=== PATIENT | male | born 1945 | race Caucasian/White ===

== ENCOUNTER 2021-07-06 20:45 | Emergency (ER) | payer MEDICARE, BC ==
[~2021-07-06] VITALS: Ht 172.7 cm; Wt 66.7 kg
[2021-07-06] MEDS ORDERED: ASA81BEC PO (20:53)
[2021-07-06] MEDS ORDERED: METFORMIN HCL500 M3 PO (20:53)
[2021-07-06 21:43] LABS: URINE BILIRUBIN NEGATIVE (Negative); URINE BLOOD 1+ (Negative); URINE CLARITY CLEAR; URINE COLOR YELLOW; URINE GLUCOSE-RANDOM 1+ (Negative); URINE KETONES NEGATIVE (Negative); URINE LEUKOCYTES-REFLEX NEGATIVE (Negative); URINE NITRITE-REFLEX NEGATIVE (Negative); URINE PROTEIN TRACE (Negative); URINE UROBILINOGEN 0.2 E.U./dl (0.2-1.0)
[2021-07-06 21:44] LABS: ABSOLUTE BASOPHILS 0.1 thou/uL (0.0-0.2); ABSOLUTE LYMPHOCYTES 1.6 thou/uL (0.8-5.3); ABSOLUTE MONOCYTES 0.9 thou/uL (0.0-1.2); ABSOLUTE NEUTROPHILS 8.1 thou/uL (1.6-8.1); BASOPHILS 1.1 %; EOSINOPHILS 0.3 %; HEMATOCRIT 46.9 % (42.0-52.0); LYMPHOCYTES 14.5 %; MCH 32.7 pg (26.0-34.0); MCV 96.1 fL (80.0-100.0); MONOCYTES 8.2 %; MPV 7.4 fl. (7.2-11.1); NUCLEATED RBCS 0 /100WBC; PLATELET COUNT* 246 thou/uL (150-400); POLYS 75.9 %; RBC 4.88 mil/uL (4.50-6.00); RDW-CV 12.4 % (10.5-14.5); WBC 10.7 thou/uL (4.0-11.0)
[2021-07-06 21:49] LABS: BACTERIA-REFLEX None Seen /HPF (None Seen); HYALINE CASTS 4-10 Moderate /LPF (None Seen); MUCUS None Seen strn/LPF (None Seen); SQUAMOUS NONE SEEN /LPF (0-3); URINE RBC 3-10 Few /HPF (0-2); URINE WBC-REFLEX 0-5 Rare /HPF (0-5)
[2021-07-06 21:50] LABS: CRYSTALS None Seen /LPF (None Seen)
[2021-07-06 21:51] LABS: CALCIUM 9.7 mg/dL (8.5-10.1); POTASSIUM 3.6 mmol/L (3.5-5.1)
[2021-07-06 22:05] LABS: ALBUMIN 3.9 g/dL (3.4-5.0); TOTAL BILIRUBIN 0.4 mg/dL (<0.1-1.0); TOTAL PROTEIN 8.3 g/dL (6.4-8.2)
[2021-07-07 00:47] VITALS: BP 110/70
--- NOTE | 2021-07-07 09:32 | EKG ---
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
== END 2021-07-07 00:47 | disposition home or self-care (01) ==
LOC: M.ERS 20:45
PROVIDERS: Personal Emergency Response Attendant
DX: I49.9 Cardiac arrhythmia, unspecified (principal); Z20.822 Contact with and (suspected) exposure to COVID-19; I10 Essential (primary) hypertension; E11.9 Type 2 diabetes mellitus without complications; F17.210 Nicotine dependence, cigarettes, uncomplicated; Z79.82 Long term (current) use of aspirin; Z79.899 Other long term (current) drug therapy

== ENCOUNTER → 2021-08-10 | Outpatient (CLI) | payer MEDICARE, BC ==
[~2021-08-10] MED LIST: ASA81BEC PO; METFORMIN HCL500 M3 PO
--- NOTE | 2021-08-10 12:18 | 2DMMODE ---
[place] [address] 2 D/M-MODE ECHOCARDIOGRAM Name: SANYAVALENTINO Room: [facility]#: [id number] Admission: 08/10/21 Attend Phys: Dharmesh Alvarez, Discharge: Date of : 47 Date of Service: 08/10/21 1218 Report #: [id number] THIS REPORT FOR: cc: Laura Schawb Beth E. DO Holkins,Fredi Quevedo MD [facility] ~ APPROVED REPORT Study performed: 08/10/2021 11:20:25 EXAM: Comprehensive 2D, Doppler, and color-flow Echocardiogram BSA: 1.78 HR: 90 bpm BP: 140/70 mmHg Other Information Study Quality: Good Indications Dizziness and Vertigo Palpitations Syncope 2D Dimensions IVSd: 12.05 (7-11mm) LVOT Diam: 19.83 (18-24mm) LVDd: 36.03 mm PWd: 10.62 (7-11mm) Ascending Ao: 26.34 (22-36mm) LVDs: 26.59 (25-40mm) Aortic Root: 31.06 mm Volumes Left Atrial Volume (Systole) LA ESV Index: 20.70 mL/m2 Aortic Valve AoV Peak Giovanny.: 1.15 m/s AO Peak Gr.: 5.31 mmHg LVOT Max P.60 mmHg AO Mean Gr.: 2.84 mmHg LVOT Mean P.62 mmHg LVOT Max V: 0.81 m/s AO V2 VTI: 20.82 cm LVOT Mean V: 0.61 m/s SHEMAR (VTI): 3.36 cm2 LVOT V1 VTI: 22.65 [place] [address] 2 D/M-MODE ECHOCARDIOGRAM Name: VALENTINO SEGUNDO [id number] Admission: 08/10/21 Attend Phys: Dharmesh Alvarez, Discharge: Date of : 47 Date of Service: 08/10/21 1218 Report #: [id number] E/A Ratio: 0.77 MV Decel. Time: 225.84 ms MV E Max Giovanny.: 0.85 m/s MV PHT: 65.49 ms MVA (PHT): 3.36 cm2 TDI E/Lateral E': 12.14 E/Medial E': 14.17 Medial E' Giovanny.: 0.06 m/s Lateral E' Giovanny.: 0.07 m/s Pulmonary Valve PV Peak Giovanny.: 0.99 m/s PV Peak Gr.: 3.90 mmHg Tricuspid Valve RAP Estimate: 5.00 mmHg TR Peak Gr.: 36.16 mmHg RVSP: 41.16 mmHg PA Pressure: 41.16 mmHg Left Ventricle The left ventricle is normal size. There is normal LV segmental wall motion. There is normal left ventricular wall thickness. Left ventricular systolic function is normal. The left ventricular ejection fraction is within the normal range. LVEF is 60-65%. Grade I - abnormal relaxation pattern. Right Ventricle The right ventricle is normal size. The right ventricular systolic function is normal. Atria The left atrium size is normal. The right atrium size is normal. Aortic Valve Mild aortic valve sclerosis. Mild aortic regurgitation. There is no aortic valvular stenosis. Mitral Valve Mitral valve leaflets are mildly thickened. Mitral regurgitation jet is eccentrically directed. Mild mitral regurgitation. No evidence of mitral valve stenosis. Tricuspid Valve The tricuspid valve is normal in structure. Mild [place] [address] 2 D/M-MODE ECHOCARDIOGRAM Name: VALENTINO SEGUNDO Edyta Room: [facility]#: [id number] Admission: 08/10/21 Attend Phys: Dharmesh Alvarez, Discharge: Date of : 47 Date of Service: 08/10/21 1218 Report #: [id number] Pulmonic Valve The pulmonary valve is normal in structure. Trace pulmonic regurgitation. Great Vessels The aortic root is normal in size. IVC is normal in size and collapses >50% with inspiration. Pericardium There is no pericardial effusion. <Conclusion> The left ventricle is normal size. There is normal left ventricular wall thickness. Left ventricular systolic function is normal. The left ventricular ejection fraction is within the normal range. LVEF is 60-65%. Grade I - abnormal relaxation pattern. The right ventricle is normal size. The left atrium size is normal. Mild aortic valve sclerosis. Mild aortic regurgitation. There is no aortic valvular stenosis. Mitral valve leaflets are mildly thickened. Mitral regurgitation jet is eccentrically directed. Mild mitral regurgitation. The tricuspid valve is normal in structure. Mild tricuspid regurgitation. IVC is normal in size and collapses >50% with inspiration. There is no pericardial effusion. There is normal LV segmental wall motion. <ELECTRONICALLY SIGNED> By: Fredi Disla MD, FACC 08/10/211217 17 17 Fredi Disla MD, FACC /INF
--- NOTE | 2021-08-10 16:51 | CARDNUC ---
[place] [address] CARDIAC NUCLEAR IMAGING REPORT Name: VALENTINO SEGUNDO Room: [facility]#: [id number] Admission: 08/10/21 Attend Phys: Dharmesh Alvarez, Discharge: Date of : 47 Date of Service: 08/10/21 1650 Report #: [id number] THIS REPORT FOR: cc: Laura Schwab Beth E. DO Liston, Michael J. MD [facility] ~ APPROVED REPORT Study performed: 08/10/2021 09:03:55 Exam: Nuclear Stress Test Indication: Chest pain Patient Location: Out-Patient Stress Tech: ERENDIRA NASH Stress Nurse: Michelle Herrera RN NM Tech:TONYA Russ Ht: 5 ft 6 in Wt: 150 lbs BSA: 1.77 m2 BMI: 24.20 Medical History Medical History: Diabetes, HTN, Hyperlipidemia Medications: AMLODIPINE, ASA, PRAVASTATIN Allergies: No known drug allergies Cardiac Risk Factors: Age, DM, HTN, Hyperlipidemia Exercise History: Physically active Stress Test Details Stress Test: Pharmacologic stress testing performed using 0.4 mg of regadenoson per 5 mL given IV over 10 seconds. Reason for pharmacologic stress test: arthritis. HR Resting HR: 82 bpm Max Heart Rate (APMHR): 145 bpm Max HR Achieved: 110 bpm Target HR (85% APMHR): 123 bpm % of APMHR: 75 Recovery HR: 104 bpm BP Resting BP: 147/72 mmHg Max BP: 127/53 mmHg ECG Resting ECG: [place] [address] CARDIAC NUCLEAR IMAGING REPORT Name: SANYAMICAELAVALENTINO Edyta Room: [facility]#: [id number] Admission: 08/10/21 Attend Phys: Dharmesh Alvarez, Discharge: Date of : 47 Date of Service: 08/10/21 1650 Report #: [id number] Stress ECG: Sinus Tachycardia ST Change: None Arrhythmia: None Recovery ECG: Sinus Rhythm Recovery ST Change: None Recovery Arrhythmia: None Clinical Reason for Termination: Completed protocol The patient tolerated Lexiscan infusion without significant cardiac symptoms. Stress ECG Conclusion The baseline twelve-lead EKG shows sinus rhythm without significant ST segment or T wave abnormality. EKGs obtained during and post Lexiscan infusion show sinus rhythm and sinus tachycardia with no significant ST segment changes when compared to baseline. There were no stress-induced arrhythmias. NM EXAM: Myocardial Perfusion REST/STRESS Imaging Protocol: Rest Tc-99m/Stress Tc-99m 1 day Resting Data Rest SPECT myocardial perfusion imaging was performed in supine position 30 minutes following the intravenous injection of 11.5 mCi of Tc-99m Sestamibi. Time of rest injection: 739 Date: 08/10/2021 The images were gated to evaluate regional wall motion and calculate left ventricular ejection fraction. Administration Route: IV Administration Site: Right AC Pharmacologic Stress Pharmacologic stress test was performed by injecting Regadenoson 0.4 mg IV push followed by the intravenous injection of 35.2 mCi of Tc-99m Sestamibi. Time of stress injection: 919 Date: 08/10/2021 Administration Route: IV Administration Site: Right AC Gated Stress SPECT was performed 40 minutes after stress injection. The images were gated to evaluate regional wall motion and calculate left ventricular ejection fraction. Prone imaging [place] [address] CARDIAC NUCLEAR IMAGING REPORT Name: VALENTINO SEGUNDO Room: [facility]#: [id number] Admission: 08/10/21 Attend Phys: Dharmesh Alvarez, Discharge: Date of : 47 Date of Service: 08/10/21 1650 Report #: [id number] Study: Good Artifact: Mild Diaphragmatic artifact Study Data At rest, the left ventricular ejection fraction was 69%.. Post stress, the left ventricular ejection was 78%.. TID = 0.82. Perfusion Perfusion images obtained at rest and post Lexiscan stress in the supine position show a large in size moderate intensity defect involving the inferior wall that resolves for the most part on post-rest prone imaging suggesting diaphragmatic attenuation artifact. No other significant fixed or reversible defects are identified. Wall Motion Normal left ventricular wall motion. Nuclear Conclusion ECG Findings: negative for ischemia Clinical Findings: negative for ischemia Nuclear Findings: negative for ischemia Exercise Capacity: not assessed Left Ventricular Function: normal Risk Study: low Perfusion images show no defect to suggest infarct or ischemia. Left ventricular systolic function appears normal on gated studies. This is a low risk study. <Conclusion> The baseline twelve-lead EKG shows sinus rhythm without significant ST segment or T wave abnormality. EKGs obtained during and post Lexiscan infusion show sinus rhythm and sinus tachycardia with no significant ST segment changes when compared to baseline. There were no stress-induced arrhythmias. <ELECTRONICALLY SIGNED> By: Dharmesh Alvarez MD, FACC 08/10/211649 49 49 Dharmesh Alvarez MD, FACC /INF
== END ==
LOC: M.CRD 07-15 13:40 → M.NUC 07:18
PROVIDERS: ATTEND Internal Medicine Cardiovascular Disease
DX: I08.3 Combined rheumatic disorders of mitral, aortic and tricuspid valves (principal); R00.0 Tachycardia, unspecified; I10 Essential (primary) hypertension; R07.9 Chest pain, unspecified